=== PATIENT | female | born 1975 | race Hispanic/Latino ===

== ENCOUNTER → 2024-07-27 | Day surgery (SDC) | payer OTHER ==
[~2024-07-27] MED LIST: ATORVASTATIN CA10 MG PO; D3-5000125 MCG; FISH OIL 1,0001 EAC7; K2-D3 10,000 U1 EACH; LIDOCAINE HCL 2% LOCAL INJ 5 ML SDV VIAL INJ ONE; MAGNESIUM100 MG; MIDAZOLAM HCL 2 MG/2 ML VIAL ONE; MULTI-VITAMIN1 EACH PO; OLMESARTAN-HCT1 EAC1; OLMSRTN-AMLDPN1 EAC3 PO; PROPOFOL IV EMULSION 10 MG/ML 20 ML VIAL ONE; ZOLOFT50 MG PO
[2024-07-27] MEDS: LACTATED RINGER'S 1,000 ML ONE (13:31)
[2024-07-27 15:10] VITALS: BP 126/72; PULSE 72; RESP 17; O2SAT 98
== END | disposition home or self-care (01) ==
LOC: OR 11:47
PROVIDERS: ATTEND Internal Medicine Gastroenterology
DX: Z12.11 Encounter for screening for malignant neoplasm of colon (principal); D12.5 Benign neoplasm of sigmoid colon; R19.7 Diarrhea, unspecified; K64.8 Other hemorrhoids; I10 Essential (primary) hypertension; E78.5 Hyperlipidemia, unspecified; M06.9 Rheumatoid arthritis, unspecified; M19.90 Unspecified osteoarthritis, unspecified site; F41.9 Anxiety disorder, unspecified; Z88.0 Allergy status to penicillin; Z01.810 Encounter for preprocedural cardiovascular examination; Z79.899 Other long term (current) drug therapy; Z68.31 Body mass index [BMI] 31.0-31.9, adult
CPT/HCPCS: 45380; 45384; 81025; 93005 ×2; J2003; J2250; J2704; J7121